=== PATIENT | female | born 1975 ===

== ENCOUNTER 2019-01-18 14:32 | Emergency (ER) | payer SELFPAY ==
[2019-01-18 15:05] VITALS: BP 120/76
--- NOTE | 2019-01-18 15:43 | UC ---
Lower Extremity/Ankle HPI - HPI Summary HPI Summary: 43-year-old female who works at [employer] and is on her feet most of the day. Last week she started noticing she was having some pain at the base of her toes on the right foot. No specific injury. She does have some callus formation there. She states it worsened over the past couple of days. - History of Current Complaint Chief Complaint: UCLowerExtremity Stated Complaint: LEFT FOOT COMPLAINT Time Seen by Provider: 01/18/19 15:35 Hx Obtained From: Patient ?: No Onset/Duration: Gradual Onset Severity Initially: Mild Severity Currently: Moderate Pain Intensity: 6 Aggravating Factor(s): Standing, Ambulation Alleviating Factor(s): Rest Able to Bear Weight: Yes - Allergies/Home Medications Allergies/Adverse Reactions: Allergies Allergy/AdvReac Type Severity Reaction Status Date / Time No Known Allergies Allergy Verified 01/18/19 15:05 Home Medications: Home Medications Esomeprazole Magnesium [Nexium 24Hr] 20 mg PO DAILY 01/18/19 [History Confirmed 01/18/19] PMH/Surg Hx/FS Hx/Imm Hx - Additional Past Medical History Additional PMH: Patient has mixed connective tissue disease Previously Healthy: Yes - Surgical History Surgical History: Yes Surgery Procedure, Year, and Place: hysterectomy - Family History Known Family History: Positive: Non-Contributory - Social History Occupation: Employed Full-time Alcohol Use: Occasionally Substance Use Type: None Smoking Status (MU): Heavy Every Day Tobacco Smoker Length of Time of Smoking/Using Tobacco: age 16 Review of Systems All Other Systems Reviewed And Are Negative: Yes - U agree with Motor: Positive: Negative Neurovascular: Positive: Negative Musculoskeletal: Positive: Other: - The patient has pain at the base of her toes on the right foot. Hurts more when she flexes her toes and appears weak. Neurological: Positive: Negative Psychological: Positive: Negative Is Patient Immunocompromised?: No Physical Exam Triage Information Reviewed: Yes Appearance: Well-Appearing, No Pain Distress, Well-Nourished Vital Signs: Initial Vital Signs Temp 97 F 01/18/19 15:00 Pulse 68 01/18/19 15:00 Resp 16 01/18/19 15:00 BP 120/76 01/18/19 15:00 Pulse Ox 98 01/18/19 15:00 Vital Signs Reviewed: Yes Musculoskeletal: Positive: Strength Intact, ROM Intact, Other: - Second third fourth and fifth toes are tender on palpation at the base of them. No evidence of infection. No bruising, erythema, deformity or swelling help the patient states she thinks her toes are swollen. The base of the first and fifth metatarsals are nontender. Neurological Exam: Normal Psychological Exam: Normal Skin: Positive: Other - See above notes. Lower Extremity Course/Dx - Course Course Of Treatment: Left foot x-ray:negative - Differential Dx/Diagnosis Provider Diagnosis: Foot pain Discharge ED - Sign-Out/Discharge Documenting (check all that apply): Patient Departure All imaging exams completed and their final reports reviewed: Yes - Discharge Plan Condition: Good Disposition: HOME Patient Education Materials: Swollen Joint (ED) Forms: *Work Release Referrals: No Primary Care Phys,NOPCP [Primary Care Provider] - Rodrick Ortega DPM [Doctor of Podiatric Medicine] - Additional Instructions: Elevate as often as possible, Apply warm, moist heat to the sore area, continue your Naproxen as directed. Follow up with Dr. Ortega in the next week if continued pain or worsening symptoms. - Billing Disposition and Condition Condition: GOOD Disposition: Home - Attestation Statements Provider Attestation: Per institutional requirements, I have reviewed the chart, however, I was not consulted specifically or made aware of this patient by the midlevel provider. I did not personally evaluate, interact with , or disposition this patient.
== END 2019-01-18 16:27 | disposition home or self-care (01) ==
LOC: UCCORT 14:32
DX: M79.672 Pain in left foot (principal); M35.1 Other overlap syndromes; F17.200 Nicotine dependence, unspecified, uncomplicated
CPT/HCPCS: 99201; G0463